=== PATIENT | female | born 1990 | race Caucasian/White ===

== ENCOUNTER 2024-05-04 08:20 | Day surgery (SDC) | payer BC ==
[~2024-05-04] VITALS: Ht 149.9 cm; Wt 59.9 kg
[2024-05-04 08:54] LABS: HCG,QUAL RESULT NEGATIVE (NEGATIVE)
[2024-05-04] MEDS ORDERED: ACETAMINOPHEN I.V. 1000 MG 100 ML IV ONE (10:49)
[2024-05-04] MEDS ORDERED: ROCURONIUM BROMIDE 10 MG/ML (ZEMURON) ONE (11:00)
[2024-05-04] MEDS ORDERED: PROPOFOL 200MG/ 20ML VIAL (DIPRIVAN) IV ONE (11:00)
[2024-05-04] MEDS ORDERED: LIDOCAINE 2%, 20 ML MDV ONE (11:00)
[2024-05-04] MEDS ORDERED: MUPIROCIN 2% TOPICAL OINTMENT 22 GM ONE (11:00)
[2024-05-04] MEDS ORDERED: ONDANSETRON HCL 4 MG/2 ML VIAL ONE (11:00)
[2024-05-04] MEDS ORDERED: fentaNYL CITRATE/PF 100 MCG/2 ML AMP ONE (11:00)
[2024-05-04] MEDS ORDERED: DESFLURANE 15 MIN GAS INH ONE (11:00)
[2024-05-04] MEDS ORDERED: OXYMETAZOLINE HCL 0.05% NASAL SPRAY NS ONE (11:00)
[2024-05-04] MEDS ORDERED: NS IRRIG SOLN 1000 ML IR ONE (11:00)
[2024-05-04] MEDS ORDERED: MIDAZOLAM HCL 5 MG/ML VIAL (VERSED) IV ONE (11:00)
[2024-05-04] MEDS ORDERED: SUGAMMADEX SODIUM 200 MG/2 ML VIAL IV ONE (11:00)
[2024-05-04] MEDS ORDERED: LR 1,000 ML IV.SOLN IV ONE (11:00)
[2024-05-04] MEDS ORDERED: WATER FOR IRRIGATION,STERILE 1,000 ML IRRIG.SOLN IR ONE (11:00)
[2024-05-04] MEDS ORDERED: DEXAMETHASONE SOD PHOSPHATE 4 MG/ML VIAL ONE (11:00)
[2024-05-04] MEDS ORDERED: MIDAZOLAM HCL 2 MG/2 ML VIAL (VERSED) IVP PRN (12:00)
[2024-05-04] MEDS ORDERED: HYDROmorphone 1 MG/ML INJ. CARTRIDGE IVP PRN ×2 (12:00)
[2024-05-04] MEDS ORDERED: LABETALOL 100 MG/ 20ML VIAL IVP PRN (12:00)
[2024-05-04] MEDS ORDERED: LR 1,000 ML IV SCH (12:00)
[2024-05-04] MEDS ORDERED: METOCLOPRAMIDE HCL 10 MG/2 ML VIAL IVP PRN (12:00)
[2024-05-04] MEDS ORDERED: hydrALAZINE HCL 20 MG/ML VIAL IVP PRN (12:00)
[2024-05-04] MEDS ORDERED: MEPERIDINE HCL/PF 25 MG/ML DISP.SYRIN IVP PRN (12:00)
[2024-05-04 16:25] VITALS: O2SAT 100
[2024-05-04 16:31] VITALS: BP_SYST 119; PULSE 66; RESP 20
== END 2024-05-04 16:00 | disposition home or self-care (01) ==
LOC: SDS 08:20 → SMU 08:24 → SDS 16:00
PROVIDERS: ATTEND Otolaryngology
DX: D38.5 Neoplasm of uncertain behavior of other respiratory organs (principal); J34.89 Other specified disorders of nose and nasal sinuses; J32.2 Chronic ethmoidal sinusitis; J34.2 Deviated nasal septum; J32.9 Chronic sinusitis, unspecified; Z79.899 Other long term (current) drug therapy; Z98.890 Other specified postprocedural states; Z83.3 Family history of diabetes mellitus
CPT/HCPCS: 31297; 30520; 30140; 31256; 31255; 84703; 88304; 88305; 88311; J3490; J1100; J2250; J2405; J2704; J3010; J7120; C1726; J0131; J2001